=== PATIENT | male | born 1960 | race Caucasian/White ===

== ENCOUNTER 2020-11-30 16:21 | Emergency (ER) | payer BC ==
[~2020-11-30] VITALS: Ht 177.8 cm; Wt 108.9 kg
== END 2020-11-30 18:00 | disposition home or self-care (01) ==
LOC: ER 17:55
DX: F41.0 Panic disorder [episodic paroxysmal anxiety] (principal); F41.9 Anxiety disorder, unspecified
CPT/HCPCS: 93005; 99282

== ENCOUNTER → 2024-05-23 | Outpatient (REF) | payer BC ==
[~2024-05-23] MED LIST: ALLERGY MEDICAT25 MG PO; ATORVASTATIN CA20 MG PO; CRESTOR40 MG PO; MULTI-VITAMIN1 EACH PO; PROBIOTIC1 EAC1 PO; SINGULAIR10 MG PO
== END ==
LOC: CT 15:25
PROVIDERS: ATTEND Internal Medicine
DX: J44.9 Chronic obstructive pulmonary disease, unspecified (principal); J47.9 Bronchiectasis, uncomplicated; F17.210 Nicotine dependence, cigarettes, uncomplicated
CPT/HCPCS: 71250

== ENCOUNTER 2024-05-24 09:38 | Emergency (ER) | payer BC ==
[~2024-05-24] VITALS: Ht 177.8 cm; Wt 127.5 kg
[~2024-05-24 09:38] MED LIST changes: -CRESTOR40 MG PO; -SINGULAIR10 MG PO
[2024-05-24 09:57] VITALS: TEMP 98
[2024-05-24] MEDS ORDERED: SINGULAIR10 MG PO (10:03)
[2024-05-24] MEDS ORDERED: CRESTOR40 MG PO (10:03)
[2024-05-24 10:36] LABS: BASOPHILS # (AUTO) 0.1 (0.0-0.1); BASOPHILS % 0.8 % (0.0-1.0); EOSINOPHILS # (AUTO) 0.2 (0.0-0.4); EOSINOPHILS % 2.3 % (0.0-6.0); HEMATOCRIT 43.8 % (38.2-49.6); HEMOGLOBIN 14.6 g/dL (14.0-18.0); LYMPHOCYTES # (AUTO) 2.4 (1.0-3.2); LYMPHOCYTES % 36.4 % (18.0-39.1); MEAN CORPUSCULAR HEMOGLOBIN 33.8 pg (28-32); MEAN CORPUSCULAR HGB CONC 33.3 g/dL (31-35); MEAN CORPUSCULAR VOLUME 101.4 fL (81-99); MONOCYTES # (AUTO) 0.6 (0.2-0.8); MONOCYTES % 9.8 % (4.4-11.3); NEUTROPHILS # (AUTO) 3.3 (2.1-6.9); NEUTROPHILS % 50.4 % (38.7-80.0); PLATELET COUNT 250 x10e3/uL (140-360); RED BLOOD COUNT 4.32 x10e6/uL (4.3-5.7); RED CELL DISTRIBUTION WIDTH 11.7 % (11.7-14.4); WHITE BLOOD COUNT 6.45 x10e3/uL (4.8-10.8)
[2024-05-24] MEDS: MAGNESIUM/ALUMINUM/SIMETHICONE 30 ML UDC PO ONE (10:36)
[2024-05-24] MEDS: BELLADONNA ALK/PHENOBARBITAL 5 ML UDC PO STA (10:36)
[2024-05-24] MEDS: LIDOCAINE VISC 2% SOLN 15 ML UDC PO ONE (10:36)
[2024-05-24 10:51] LABS: ALBUMIN 3.9 g/dL (3.5-5.0); ALBUMIN/GLOBULIN RATIO 1.3 (0.8-2.0); ANION GAP 14.8 mmol/L (8-16); BILIRUBIN,TOTAL 1.8 mg/dL (0.2-1.2); CALCIUM 9.5 mg/dL (8.4-10.2); CREATININE, SERUM 0.93 mg/dL (0.72-1.25); POTASSIUM 3.8 mmol/L (3.5-5.1); TOTAL PROTEIN 6.9 g/dL (6.5-8.1)
[2024-05-24 10:57] LABS: TROPONIN I 0.013 ng/mL (0-0.300)
[2024-05-24 11:50] VITALS: O2SAT 98
[2024-05-24 13:09] VITALS: PULSE 82; RESP 25
== END 2024-05-24 13:12 | disposition home or self-care (01) ==
LOC: ER 09:54
DX: R06.02 Shortness of breath (principal); R07.89 Other chest pain; J44.9 Chronic obstructive pulmonary disease, unspecified; G47.30 Sleep apnea, unspecified; F41.9 Anxiety disorder, unspecified; F32.A Depression, unspecified
CPT/HCPCS: 36415; 71045; 80053; 84484; 85025; 93005; 99283; J2470

== ENCOUNTER → 2024-11-28 | Day surgery (SDC) | payer BC ==
[2024-11-24 09:43] LABS: BASOPHILS % 0.5 % (0.0-1.0); EOSINOPHILS % 2.3 % (0.0-6.0); LYMPHOCYTES % 28.6 % (18.0-39.1); MONOCYTES % 10.5 % (4.4-11.3); NEUTROPHILS % 57.8 % (38.7-80.0); RED CELL DISTRIBUTION WIDTH 12.3 % (11.7-14.4)
[2024-11-24 10:14] LABS: EST GLOMERULAR FILTRATION RATE 83.0 ML/MIN (>=60)
[~2024-11-28] MED LIST changes: +ACETAMINOPHEN 1000 MG/100 ML 100 ML IV ONE; +CETIRIZINE HCL10 MG PO; +CRESTOR40 MG PO; +DEXAMETHASONE SOD PHOS INJ 4 MG/ML SDV ONE; +EPHEDRINE SULFATE INJ 50 MG/ML VIAL ONE; +FENTANYL CITRATE/PF 100MCG/2 ML INJ ONE; +GLYCOPYRROLATE INJ 0.2 MG/ML VIAL ONE; +LANTUS 3ML100 UNITS/ SC; +LIDOCAINE HCL 2% LOCAL INJ 5 ML SDV VIAL INJ ONE; +LOSARTAN POTASS25 MG PO; +MIDAZOLAM HCL 2 MG/2 ML VIAL ONE; +ONDANSETRON HCL INJ 2MG/ML 2ML 2 MG/ML VIAL ONE; +PROPOFOL IV EMULSION 10 MG/ML 20 ML VIAL ONE; +ROCURONIUM BROMIDE 1 ML IV ONE; +SEVOFLURANE INHAL SOLN 250 ML PEN BTL ONE; +SINGULAIR10 MG PO; +SUCCINYLCHOLINE CHLORIDE 20 MG/ML 10ML VIAL ONE; +SUGAMMADEX SODIUM 200 MG/2 ML VIAL IV ONE; +TRELEGY ELLIPT1 EACH INH
[2024-11-28] MEDS: LACTATED RINGER'S 1,000 ML ONE (08:28)
[2024-11-28] MEDS: HYDROCODONE/APAP 7.5MG-325MG 1 EA TAB ONE (12:33)
[2024-11-28] MEDS: ONDANSETRON HCL INJ 2MG/ML 2ML 2 MG/ML VIAL ONE (12:37)
[2024-11-28 13:10] VITALS: BP 132/87; PULSE 67; RESP 17; O2SAT 97
== END | disposition home or self-care (01) ==
LOC: OR 07:49
PROVIDERS: ATTEND Surgery
DX: K80.10 Calculus of gallbladder with chronic cholecystitis without obstruction (principal); I10 Essential (primary) hypertension; E11.9 Type 2 diabetes mellitus without complications; Z79.4 Long term (current) use of insulin; J44.9 Chronic obstructive pulmonary disease, unspecified; G47.33 Obstructive sleep apnea (adult) (pediatric); F41.9 Anxiety disorder, unspecified; K58.9 Irritable bowel syndrome, unspecified; E11.21 Type 2 diabetes mellitus with diabetic nephropathy; Z79.84 Long term (current) use of oral hypoglycemic drugs; E66.01 Morbid (severe) obesity due to excess calories; F17.201 Nicotine dependence, unspecified, in remission; I25.2 Old myocardial infarction; Z01.810 Encounter for preprocedural cardiovascular examination; Z01.812 Encounter for preprocedural laboratory examination; Z01.818 Encounter for other preprocedural examination; Z79.899 Other long term (current) drug therapy
CPT/HCPCS: 36415 ×2; 47562; 71046; 80053; 82948; 85025; 88304; 93005; C1766; J0131; J0330; J1100; J2003; J2250; J2405; J2704; J3010; J7121